=== PATIENT | female | born 1960 | race Caucasian/White ===

== ENCOUNTER 2017-04-06 15:26 | Observation (INO) | payer SELFPAY ==
[~2017-04-06] VITALS: Ht 149.9 cm; Wt 63.6 kg
[2017-04-06 16:32] LABS: APPEARANCE TURBID ((CLEAR)); BILIRUBIN NEGATIVE; BLOOD NEGATIVE; COLOR YELLOW ((YELLOW)); GLUCOSE (STRIP) NEGATIVE; KETONES NEGATIVE; LEUKOCYTES NEGATIVE; NITRITE NEGATIVE; PROTEIN (STRIP) NEGATIVE; SPECIFIC GRAVITY 1.014 (1.000-1.030); UROBILINOGEN 0.2 MG/DL (0.2-1.0)
[2017-04-06 16:43] LABS: HEMATOCRIT 39.8 % (36.0-46.0); HEMOGLOBIN 14.7 G/DL (11.9-15.5); MCH 33.8 PG (29.0-34.0); MCHC 36.9 G/DL (30.0-36.0); MCV 91.5 FL (83-99); PLATELET COUNT 217 K/uL (156-360); RBC DIS.WIDTH-CV 11.9 % (11.8-14.6); RBC DIS.WIDTH-SD 39.8 % (39-53); RED BLOOD COUNT 4.35 M/uL (3.80-5.20); WHITE BLOOD COUNT 5.3 K/uL (4.1-10.2)
[2017-04-06 16:52] LABS: AMORPHOUS URATES CRYSTALS 3+; BACTERIA 1+ /HPF; EPITHELIAL CELLS 2+ /HPF; MUCUS NONE SEEN /LPF; RED BLOOD CELLS 0-5 /HPF (0-5); WHITE BLOOD CELLS 0-5 /HPF (0-5)
[2017-04-06 16:53] LABS: CHLORIDE 108 mEq/L (99-109); POTASSIUM 3.2 mEq/L (3.7-5.4); SODIUM 144 mEq/L (136-147)
[2017-04-06 16:55] LABS: GLUCOSE 91 mg/dL (70-99)
[2017-04-06 16:59] LABS: CREATININE 0.7 mg/dL (0.6-1.3)
[2017-04-06 17:00] LABS: UREA NITROGEN (BUN) 20 mg/dL (9-23)
[2017-04-06 17:07] LABS: GFR ESTIMATE (CALCULATED) > 59 mL/min/
[2017-04-06 19:14] LABS: TROP-I INTERPRETATION NEGATIVE; TROPONIN-I < 0.01 ng/mL (0.0-0.30)
[2017-04-06 20:01] LABS: AMPHETAMINE NEGATIVE (500 ng/mL); BARBITURATES NEGATIVE (200 ng/mL); BENZODIAZEPINES NEGATIVE (150 ng/mL); BUPRENORPHINE NEGATIVE (10 ng/mL); COCAINE NEGATIVE (150 ng/mL); METHADONE NEGATIVE (200 ng/mL); METHAMPHETAMINE NEGATIVE (500 ng/mL); OPIATES (MORPHINE) NEGATIVE (100 ng/mL); OXYCODONE NEGATIVE (100 ng/mL); PHENCYCLIDINE NEGATIVE (25 ng/mL); PROPOXYPHENE NEGATIVE (300 ng/mL); THC CANNABINOIDS NEGATIVE (50 ng/mL); TRICYCLIC ANTIDEPRESSANTS NEGATIVE (300 ng/mL)
[2017-04-06] MEDS ORDERED: ADVIL,NUPRIN,M200 MG PO (22:28)
[2017-04-06] MEDS ORDERED: ALLEGRA ALLERG180 MG PO (22:30)
[2017-04-06] MEDS ORDERED: NASAL SPRAY30 M2 BOTH NARES (22:32)
[2017-04-07] VITALS (10 sets, daily range): BP systolic 130–181; BP diastolic 75–95
[2017-04-07 01:42] LABS: TROP-I INTERPRETATION NEGATIVE; TROPONIN-I < 0.01 ng/mL (0.0-0.30)
[2017-04-07 07:03] LABS: TROP-I INTERPRETATION NEGATIVE; TROPONIN-I < 0.01 ng/mL (0.0-0.30)
[2017-04-07] MEDS ORDERED: AUGMENTIN875 MG PO (11:53)
[2017-04-07] MEDS ORDERED: ROBAXIN500 MG PO (11:54)
[2017-04-08 04:45] VITALS: BP 129/73
[2017-04-08 06:28] LABS: HEMATOCRIT 39.2 % (36.0-46.0); MCH 33.3 PG (29.0-34.0); MCHC 35.7 G/DL (30.0-36.0); MCV 93.1 FL (83-99); PLATELET COUNT 202 K/uL (156-360); RBC DIS.WIDTH-CV 11.9 % (11.8-14.6); RBC DIS.WIDTH-SD 40.9 % (39-53); RED BLOOD COUNT 4.21 M/uL (3.80-5.20); WHITE BLOOD COUNT 5.1 K/uL (4.1-10.2)
[2017-04-08 06:53] LABS: CHLORIDE 105 MEQ/L (99-109); CREATININE 0.6 MG/DL (0.6-1.3); GFR ESTIMATE (CALCULATED) > 59 mL/min/; GLUCOSE 92 mg/dL (70-99); POTASSIUM 3.6 MEQ/L (3.7-5.4); SODIUM 141 MEQ/L (136-147); UREA NITROGEN (BUN) 18 mg/dL (9-23)
[2017-04-08 07:40] VITALS: BP 143/83
[2017-04-08 08:22] LABS: HDL CHOLESTEROL 56 MG/DL (Desirable>=50); LDL CHOLESTEROL 155 mg/dL (Desirable<100); NON-HDL CHOLESTEROL 178 mg/dL (Desirable<160); TOTAL CHOLESTEROL 234 mg/dL (Desirable<200); TRIGLYCERIDES 117 MG/DL (Normal: <150)
[2017-04-08 11:01] LABS: HEMOGLOBIN A1c (GLYCOHEMOGLOB) 5.1 % (Below 5.7)
[2017-04-08 11:21] VITALS: BP 165/93
[2017-04-08] MEDS ORDERED: LISINOPRIL-HCT1 EACH PO (12:28)
[2017-04-08] MEDS ORDERED: ACETAMINOPHEN650 M5 PO (12:28)
== END 2017-04-08 13:10 | disposition home or self-care (01) ==
LOC: EME 15:26 → ENRESERV 22:47 → CANRESERV 22:47 → EDOF 04-07 00:45 → ENRESERV 04-07 00:52 → 2EAST 04-07 01:48 → ENPENDDIS 04-08 → 2EAST 04-08 13:10
PROVIDERS: Hospitalist; Physician Assistant
DX: M54.9 Dorsalgia, unspecified (principal); I10 Essential (primary) hypertension; E87.6 Hypokalemia; F17.200 Nicotine dependence, unspecified, uncomplicated; Z80.7 Family history of other malignant neoplasms of lymphoid, hematopoietic and related tissues
CPT/HCPCS: 71046; 71260; 74176; 80048; 80061; 81003; 83036; 84443; 84484; 85027; 93005; 99281; 99285; G0378; J0360; J1885; J2270; J7040